=== PATIENT | female | born 1990 | race Caucasian/White ===

== ENCOUNTER 2017-07-11 10:58 | Outpatient (CLI) | payer OTHER | END 2017-07-11 10:59 | disposition short-term general hospital (02) | LOC: EMS 10:58 | PROVIDERS: ATTEND Surgery | DX: R11.2 Nausea with vomiting, unspecified (principal); R10.10 Upper abdominal pain, unspecified | CPT/HCPCS: A0170; A0425; A0427 ==

== ENCOUNTER 2018-10-27 13:25 | Emergency (ER) | payer OTHER ==
--- NOTE | 2018-10-27 13:49 | ED Physician Documentation ---
PD HPI HEAD INJURY - Stated complaint Stated Complaint: HEAD INJURY - Chief complaint Chief Complaint: Neuro - History obtained from History obtained from: Patient - History of Present Illness Mechanism of head injury: Blow (she says she was hiking up hill 3 days ago and misjudged clearance under a large tree branch, and struck the top of her head forcefully. [place]/heard a pop in the neck area. Later in the day noted some tingling on left side of tongue but no facial droop nor trouble speaking. Has had continued pain in the neck and back of the head. Hurts with ROM of the neck so is guarding movment. Has had pain/numbness radiate to left shoulder but not down arm per se. Has history of some moderate disc injuries with cervical stenosis from it in the past.) Timing - onset: How many days ago (3) Location of injury: Front, Top Quality of pain: Pain, Aching (mainly in back of head and neck area, sharp aching pain) Associated symptoms: Neck pain, Paresthesias (had some numbness left side of tongue after the injury for hours. Also numbness left shoulder area.). No: LOC, AMS, Nausea / vomiting Symptoms improve with: Rest Symptoms worsen with: Movement (pain with movement. Head/neck movment does not recreate the tongue numbness.) Similar symptoms before: Has not had sx before Recently seen: Not recently seen Review of Systems Constitutional: denies: Fever, Chills Eyes: denies: Loss of vision, Decreased vision Nose: denies: Rhinorrhea / runny nose, Congestion Throat: denies: Sore throat Respiratory: denies: Cough GI: denies: Nausea, Vomiting, Diarrhea Musculoskeletal: reports: Neck pain. denies: Back pain Neurologic: reports: Numbness, Headache, Head injury. denies: Focal weakness, Near syncope, Confused, Altered mental status PD PAST MEDICAL HISTORY - Past Medical History Cardiovascular: None Respiratory: None Neuro: None Endocrine/Autoimmune: None Musculoskeletal: Other (prior neck injuries with moderate disc injury and 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, follows with a neck surgeon.) - Present Medications Home Medications: Ambulatory Orders Medication Instructions Recorded Confirmed Dexamethasone [Decadron] 4 mg PO DAILY #5 tablet 10/27/18 Methocarbamol [Robaxin] 500 mg PO Q6H PRN #30 tablet 02/05/19 Tramadol HCl 50 mg PO Q6H PRN #15 tablet 10/27/18 - Allergies Allergies/Adverse Reactions: Allergies Allergy/AdvReac Type Severity Reaction Status Date / Time amitriptyline Allergy Unknown Verified 10/27/18 13:41 codeine Allergy Unknown Verified 10/27/18 13:41 duloxetine [From Cymbalta] Allergy Unknown Verified 10/27/18 13:41 NSAIDS (Non-Steroidal Allergy Unknown Verified 10/27/18 13:41 Anti-Inflamma PD ED PE NORMAL - Vitals Vital signs reviewed: Yes - General General: Alert and oriented X 3, No acute distress (some guarded ROM of the neck. ), Well developed/nourished - HEENT HEENT: Atraumatic, PERRL, EOMI, Ears normal, Pharynx benign - Neck Neck: Supple, no meningeal sign, No adenopathy, Other (tender in lower cervical area without deformity noted. 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 presume concussive effect or brief nerve impingement. ), considered differential (consider structural neck injury with impaction of head and neck pain. So will get CT neck. Also consider some concussive effect so CT head. However, had onset of neck pain and headache after the injury, with midbrain symptoms of left side tongue numbness briefly, so consider vascular as well, such as dissection.), d/w patient Departure - Departure Disposition: 01 Home, Self Care Clinical Impression: Mild concussion Qualifiers: Encounter type: initial encounter Loss of consciousness presence/duration: without LOC Qualified Code(s): S06.0X0A - Concussion without loss of consciousness, initial encounter Acute strain of neck muscle Qualifiers: Encounter type: initial encounter Qualified Code(s): S16.1XXA - Strain of muscle, fascia and tendon at neck level, initial encounter Condition: Stable Record reviewed to determine appropriate education?: Yes Follow-Up: Tre Awad MD [Primary Care Provider] - Prescriptions: Dexamethasone [Decadron] 4 mg PO DAILY #5 tablet Methocarbamol [Robaxin] 500 mg PO Q6H PRN #30 tablet PRN Reason: Spasms Tramadol HCl 50 mg PO Q6H PRN #15 tablet PRN Reason: Pain Comments: Your CT scans of the neck and head as well as the angiogram did not show any acute abnormality. These would not show inflammation of the muscles or some of the nerve roots so he can still be having strain and nerve irritation. I would presume a mild concussive effect as well given the numbness in the face at times and such. Alternatively it could represent some atypical symptoms with a migraine. There is no signs of focused bleeding, fracture or vascular abnormalities. I would suggest some anti-inflammatories such as Decadron daily for the next 5 days and muscle relaxants. You can add Tylenol or even tramadol if needed for pains. Recheck if not better over the next several days or so. Discharge Date/Time: 10/27/18 18:02
[2018-10-27] MEDS ORDERED: DEXAMETHASONE 10 MG/ML VIAL IVP STA (14:29)
[2018-10-27] MEDS ORDERED: SODIUM CHLORIDE 0.9% 1,000 ML IV ONE (14:29)
[2018-10-27] MEDS ORDERED: HYDROmorphone 1 MG/ML CARPUJECT IVP STA (14:32)
[2018-10-27] MEDS ORDERED: IOVERSOL 320 100 ML VIAL IVP ONE ×2 (14:41→16:09)
--- NOTE | 2018-10-27 16:23 | CT Report ---
Reason: struck head, with JIMÉNEZ/neck pain, numbness tongue Procedure Date: 10/27/2018 Accession Number: [id number] / [id number] Procedure: CT - Head W/O CPT Code: FULL RESULT: EXAM: CT HEAD WITHOUT CONTRAST. EXAM DATE: 10/27/2018 04:06 PM. CLINICAL HISTORY: Struck head, with headache/neck pain, numbness tongue. COMPARISON: None. TECHNIQUE: Multiaxial CT images were obtained from the foramen magnum to the vertex. Reformats: Sagittal and coronal. IV contrast: None. In accordance with CT protocol optimization, one or more of the following dose reduction techniques were utilized for this exam: automated exposure control, adjustment of mA and/or KV based on patient size, or use of iterative reconstructive technique. FINDINGS: Parenchyma: No intraparenchymal hemorrhage. No evidence of mass, midline shift, or CT findings of infarction. Bell-white differentiation is distinct. Extraaxial Spaces: Normal for age. No subdural or epidural collections identified. Ventricles: Normal in size and position. Sinuses and Orbits: Imaged paranasal sinuses, orbits, and mastoids show no significant abnormality. Bones: No evidence of fracture or calvarial defect. Other: None. IMPRESSION: Normal head CT. RADIA
--- NOTE | 2018-10-27 16:45 | CT Report ---
Reason: struck head, has neck pain, numb left arm Procedure Date: 10/27/2018 Accession Number: [id number] / [id number] Procedure: CT - Cervical Spine W/O CPT Code: FULL RESULT: EXAM: CT CERVICAL SPINE WITHOUT CONTRAST DATE: 10/27/2018 04:06 PM. HISTORY: Struck head, has neck pain, numb left arm. COMPARISONS: None. TECHNIQUE: Thin-section axial images were acquired of the cervical spine without contrast. Post-processing: Coronal and sagittal reformats. Other: None. In accordance with CT protocol optimization, one or more of the following dose reduction techniques were utilized for this exam: automated exposure control, adjustment of mA and/or KV based on patient size, or use of iterative reconstructive technique. FINDINGS: Alignment: No scoliosis or spondylolisthesis. Bones: No fracture or bone lesion. Interspace Levels/Facets: C1-C2: Unremarkable. C2-C3: Unremarkable. C3-C4: Unremarkable. C4-C5: Unremarkable. C5-C6: Unremarkable. C6-C7: Unremarkable. C7-T1: Unremarkable. Musculature: Normal. No fatty atrophy. Other: The paravertebral and prevertebral soft tissues are unremarkable. The lung apices are clear. The visualized carotid and vertebral arteries appear morphologically normal. IMPRESSION: Normal cervical spine CT. RADIA
--- NOTE | 2018-10-27 16:46 | CT Report ---
Reason: struck head; head/neck pain Procedure Date: 10/27/2018 Accession Number: [id number] / [id number] Procedure: CT - Head Angio CPT Code: FULL RESULT: EXAM: CT ANGIOGRAM HEAD AND NECK. CT SCAN HEAD WITHOUT AND WITH CONTRAST. EXAM DATE:10/27/2018 04:06 PM. CLINICAL HISTORY:Struck head, head and neck pain. COMPARISON:Accompanying unenhanced CT head. TECHNIQUE: Routine axial helical CTA imaging was performed from the aortic arch through the [place]. Routine axial CT imaging of the head was performed prior to and following contrast administration. Reconstructions: Routine multiplanar 3D MIP reconstructions. IV contrast: 80 cc Optiray 320. NASCET Criteria are used for stenosis measurements. In accordance with CT protocol optimization, one or more of the following dose reduction techniques were utilized for this exam: automated exposure control, adjustment of mA and/or KV based on patient size, or use of iterative reconstructive technique. Findings: Relevant images are indicated (image number, series number). Postcontrast CT head: No abnormal enhancement of the brain, meninges. CT angiogram head: Left ICA: Widely patent including MCA, APOLINAR distribution. Right ICA: Widely patent including MCA, APOLINAR distribution. Posterior circulation: Patent distal bilateral vertebral arteries, basilar artery, patent lateral HEADER UP distribution. There are small left/right PCOM present. Patent major draining veins. CT angiogram neck: Aortic arch: Widely patent, normal configuration of the great vessels. Left carotid artery: Widely patent. Right carotid artery: Widely patent. Left vertebral artery: Widely patent. Right vertebral artery: Widely patent. Limited evaluation of the lung apices are unremarkable. Soft tissue structures of the neck are unremarkable, and repeat. No significant degenerative change of the cervical spine, no suspicious bony lesions. Impressions: Postcontrast CT head: 1. Negative. CT angiogram head: 1. Patent major arteries of the brain, with normal anatomical variability as described. No aneurysm, dissection, stenosis, AVM. 2. Patent major veins. CT angiogram neck: 1. Widely patent aortic arch, bilateral carotid and vertebral arteries. 2. No aneurysm, dissection, stenosis, or AVM. 3. Soft tissue neck negative. 4. Cervical spine unremarkable. RADIA
--- NOTE | 2018-10-27 16:46 | CT Report ---
Reason: struck head, pain in neck and numbness left tongue Procedure Date: 10/27/2018 Accession Number: [id number] / [id number] Procedure: CT - Neck Angio CPT Code: FULL RESULT: EXAM: CT ANGIOGRAM HEAD AND NECK. CT SCAN HEAD WITHOUT AND WITH CONTRAST. EXAM DATE:10/27/2018 04:06 PM. CLINICAL HISTORY:Struck head, head and neck pain. COMPARISON:Accompanying unenhanced CT head. TECHNIQUE: Routine axial helical CTA imaging was performed from the aortic arch through the [place]. Routine axial CT imaging of the head was performed prior to and following contrast administration. Reconstructions: Routine multiplanar 3D MIP reconstructions. IV contrast: 80 cc Optiray 320. NASCET Criteria are used for stenosis measurements. In accordance with CT protocol optimization, one or more of the following dose reduction techniques were utilized for this exam: automated exposure control, adjustment of mA and/or KV based on patient size, or use of iterative reconstructive technique. Findings: Relevant images are indicated (image number, series number). Postcontrast CT head: No abnormal enhancement of the brain, meninges. CT angiogram head: Left ICA: Widely patent including MCA, APOLINAR distribution. Right ICA: Widely patent including MCA, APOLINAR distribution. Posterior circulation: Patent distal bilateral vertebral arteries, basilar artery, patent lateral SHOWROOM EXECUTIVE DIRECTOR distribution. There are small left/right PCOM present. Patent major draining veins. CT angiogram neck: Aortic arch: Widely patent, normal configuration of the great vessels. Left carotid artery: Widely patent. Right carotid artery: Widely patent. Left vertebral artery: Widely patent. Right vertebral artery: Widely patent. Limited evaluation of the lung apices are unremarkable. Soft tissue structures of the neck are unremarkable, and repeat. No significant degenerative change of the cervical spine, no suspicious bony lesions. Impressions: Postcontrast CT head: 1. Negative. CT angiogram head: 1. Patent major arteries of the brain, with normal anatomical variability as described. No aneurysm, dissection, stenosis, AVM. 2. Patent major veins. CT angiogram neck: 1. Widely patent aortic arch, bilateral carotid and vertebral arteries. 2. No aneurysm, dissection, stenosis, or AVM. 3. Soft tissue neck negative. 4. Cervical spine unremarkable. RADIA
[2018-10-27] MEDS ORDERED: diazePAM 5 MG TABLET PO STA (17:27)
[2018-10-27 18:40] VITALS: BP 128/68
== END 2018-10-27 18:02 | disposition home or self-care (01) ==
LOC: ED 13:25
DX: S06.0X0A Concussion without loss of consciousness, initial encounter (principal); S16.1XXA Strain of muscle, fascia and tendon at neck level, initial encounter; W21.9XXA Striking against or struck by unspecified sports equipment, initial encounter; Y93.01 Activity, walking, marching and hiking; Y92.828 Other wilderness area as the place of occurrence of the external cause
CPT/HCPCS: 70450; 70496; 70498; 72125; 96361; 96374; 96375; 99283; A9270; J1170; Q9967

== ENCOUNTER 2018-12-08 11:01 | Emergency (ER) | payer OTHER ==
--- NOTE | 2018-12-08 11:51 | ED Physician Documentation ---
History of Present Illness - Stated complaint Stated Complaint: FLU LIKE SX - Chief complaint Chief Complaint: General - History obtained from History obtained from: Patient - Additonal information Additional information: Patient is a 28-year-old female with history of Crohn's disease and asthma presenting with viral-like syndrome over the past 1 day. Patient reports fever, chills, generalized muscle aches and pains, decreased oral intake, sore throat and mild URI symptoms, particularly nasal congestion. Patient denies abdominal pain, vomiting, urine or stool changes, as well as difficulty breathing. Patient has taken DayQuil with mild improvement. No particular worsening factors noted.Patient requesting IV fluids. Review of Systems Constitutional: reports: Fever, Chills Ears: denies: Reviewed and negative PD PAST MEDICAL HISTORY - Past Medical History Cardiovascular: None Respiratory: None Neuro: None Endocrine/Autoimmune: None GI: Crohn's disease BUSINESS DATABASE ANALYST: Other : Chronic bladder infection Psych: Depression, Anxiety Musculoskeletal: Other (prior neck injuries with moderate disc injury and 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, follows with a neck surgeon.) Derm: Eczema - Past Surgical History Past Surgical History: Yes General: Cholecystectomy, Colonoscopy, EGD - Present Medications Home Medications: Ambulatory Orders Medication Instructions Recorded Confirmed Dexamethasone [Decadron] 4 mg PO DAILY #5 tablet 10/27/18 Methocarbamol [Robaxin] 500 mg PO Q6H PRN #30 tablet 10/27/18 Tramadol HCl 50 mg PO Q6H PRN #15 tablet 10/27/18 Oseltamivir [Tamiflu] 75 mg PO BID #10 capsule 12/08/18 - Allergies Allergies/Adverse Reactions: Allergies Allergy/AdvReac Type Severity Reaction Status Date / Time amitriptyline Allergy Unknown Verified 12/08/18 11:36 codeine Allergy Unknown Verified 12/08/18 11:36 duloxetine [From Cymbalta] Allergy Unknown Verified 12/08/18 11:36 NSAIDS (Non-Steroidal Allergy Unknown Verified 12/08/18 11:36 Anti-Inflamma - Social History Does the pt smoke?: No Smoking Status: Never smoker Does the pt drink ETOH?: Yes Does the pt have substance abuse?: No - Immunizations Immunizations are current?: Yes - POLST Patient has POLST: No PD ED PE NORMAL - General General: Alert and oriented X 3, No acute distress, Well developed/nourished - HEENT HEENT: Atraumatic, Ears normal, Moist mucous membranes, Pharynx benign - Cardiac Cardiac: RRR, No murmur - Respiratory Respiratory: No respiratory distress, Clear bilaterally - Abdomen Abdomen: Normal bowel sounds, Soft, Non tender, Non distended - Derm Derm: Normal color, Warm and dry, No rash - Extremities Extremities: No deformity - Neuro Neuro: Alert and oriented X 3, No motor deficit, No sensory deficit - Psych Psych: Normal mood, Normal affect Results - Vitals Vitals: Vital Signs - 24 hr 12/08/18 11:32 Temperature 37.1 C Heart Rate 100 Respiratory 16 Rate Blood Pressure 135/87 H O2 Saturation 97 Oxygen O2 Source Room air - Labs Labs: Laboratory Tests 12/08/18 11:30 Influenza A (Rapid) POSITIVE H Influenza B (Rapid) Negative PD MEDICAL DECISION MAKING - ED course Complexity details: reviewed results, re-evaluated patient, considered differential, d/w patient ED course: Most concerning for influenza and other viral illness, and symptomatology and physical exam findings. Also had suspicion for possible sinusitis, but feel is likely experiencing otitis media or externa, mastoiditis, peritonsillar abscess, pharyngitis, tonsillitis, or pneumonia. Also low suspicion for meningitis, intra-abdominal illness or other systemic illness except for as stated above. Influenza testing returned positive. Patient initially requested IV fluids, but later declined. Do not feel that she is dehydrated enough to require IV placement and can otherwise tolerate oral intake without issue. Discussed results and recommendations, use medications, supportive cares, return precautions and follow-up with patient. Patient voiced understanding and is comfortable with discharge plan. Departure - Departure Disposition: 01 Home, Self Care Clinical Impression: Influenza A Condition: Good Instructions: ED Flu Follow-Up: MAHNAZ MARTINEZ MD [Primary Care Provider] - Within 3 Days Prescriptions: Oseltamivir [Tamiflu] 75 mg PO BID #10 capsule Comments: Please take Tamiflu as prescribed to treat influenza. Recommend use of Tylenol as needed as well as other [id number] medications to help control symptoms. Recommend hydration, rest, and follow-up with primary care physician in next 2-3 days. Return to ED sooner if explains worsening symptoms or other concerns. Forms: Activity restrictions
[2018-12-08] MEDS ORDERED: SODIUM CHLORIDE 0.9% 1,000 ML IV ONE ×2 (12:05→12:06)
[2018-12-08 13:39] VITALS: BP 128/74
== END 2018-12-08 13:38 | disposition home or self-care (01) ==
LOC: ED 11:01
DX: J10.89 Influenza due to other identified influenza virus with other manifestations (principal)
CPT/HCPCS: 87275; 87276; 99283

== ENCOUNTER 2020-10-06 10:52 | Outpatient (CLI) | payer BC | END 2020-10-06 10:53 | disposition critical access hospital (66) | LOC: EMS 10:52 | PROVIDERS: ATTEND Surgery | DX: R10.9 Unspecified abdominal pain (principal) | CPT/HCPCS: A0425; A0427 ==

== ENCOUNTER 2020-10-06 11:30 | Emergency (ER) | payer BC, OTHER ==
[2020-10-06] MEDS ORDERED: ONDANSETRON 4 MG/2 ML VIAL IVP STA (12:28)
[2020-10-06] MEDS ORDERED: SODIUM CHLORIDE 0.9% 1,000 ML IV STA (12:28)
[2020-10-06] MEDS ORDERED: HYDROmorphone 1 MG/ML CARPUJECT IVP STA (12:28)
--- NOTE | 2020-10-06 12:33 | ED Physician Documentation ---
PD HPI ABD PAIN - Stated complaint Stated Complaint: AB PX - Chief complaint Chief Complaint: Abd Pain - History obtained from History obtained from: Patient - History of Present Illness Timing - onset: How many weeks ago (several weeks) Timing - duration: Weeks Timing - details: Gradual onset Pain level max: 10 Pain level now: 10 Quality: Cramping, Aching, Pain Location: All over / everywhere, LLQ (worst in the LLQ) Improved by: Laying still Worsened by: Moving, Palpation Associated symptoms: Nausea, Vomiting, Weight loss (states 30lbs in the last several months). No: Fever, Hematemesis, Diarrhea, Constipation, Melena, Hematochezia, Dysuria, Hematuria, Chest pain, Dizzy, Near syncope / syncope, Loss of appetite Similar symptoms before: Diagnosis (crohns disease, started on azathioprine 2 weeks ago) Recently seen: Clinic (Followed by GI at [facility] in [place], Dr. Mae, [place] [facility]. States had a CT 2 weeks ago, unsure of results.) Review of Systems Ten Systems: 10 systems reviewed and negative Constitutional: denies: Fever, Chills Ears: denies: Ear pain Nose: denies: Rhinorrhea / runny nose, Congestion Cardiac: denies: Chest pain / pressure Respiratory: denies: Cough GI: denies: Abdominal Pain, Nausea, Vomiting, Diarrhea : denies: Dysuria Skin: denies: Rash Musculoskeletal: denies: Neck pain, Back pain Neurologic: denies: Headache PD PAST MEDICAL HISTORY - Past Medical History Cardiovascular: None Respiratory: None Neuro: None Endocrine/Autoimmune: None GI: Crohn's disease FINANCIAL AUDITOR: Other : Chronic bladder infection Psych: Depression, Anxiety Musculoskeletal: Other (prior neck injuries with moderate disc injury and 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, follows with a neck surgeon.) Derm: Eczema - Past Surgical History Past Surgical History: Yes General: Cholecystectomy, Colonoscopy, EGD - Present Medications Home Medications: Ambulatory Orders Medication Instructions Recorded Confirmed Tramadol HCl 50 mg PO Q6H PRN #15 tablet 10/27/18 dexAMETHasone [Decadron] 4 mg PO DAILY #5 tablet 10/27/18 methocarbamoL [Robaxin] 500 mg PO Q6H PRN #30 tablet 10/27/18 Oseltamivir [Tamiflu] 75 mg PO BID #10 capsule 12/08/18 Hyoscyamine Sulfate [Levsin-Sl] 0.125 mg SL Q6H PRN #20 tab.subl 10/06/20 - Allergies Allergies/Adverse Reactions: Allergies Allergy/AdvReac Type Severity Reaction Status Date / Time amitriptyline Allergy Unknown Verified 12/08/18 11:36 codeine Allergy Unknown Verified 12/08/18 11:36 duloxetine [From Cymbalta] Allergy Unknown Verified 12/08/18 11:36 NSAIDS (Non-Steroidal Allergy Unknown Verified 12/08/18 11:36 Anti-Inflamma - Social History Does the pt smoke?: No Smoking Status: Never smoker Does the pt drink ETOH?: Yes Does the pt have substance abuse?: No - Immunizations Immunizations are current?: Yes - POLST Patient has POLST: No PD ED PE NORMAL - Vitals Vital signs reviewed: Yes - General General: Alert and oriented X 3, No acute distress - HEENT HEENT: Moist mucous membranes - Neck Neck: Supple, no meningeal sign - Cardiac Cardiac: RRR, Strong equal pulses - Respiratory Respiratory: No respiratory distress, Clear bilaterally - Abdomen Abdomen: Soft, Non distended, Other (TTP LLQ, no peritoneal signs.) - Derm Derm: Warm and dry - Neuro Neuro: Alert and oriented X 3 - Psych Psych: Normal mood, Normal affect Results - Vitals Vitals: Vital Signs - 24 hr 10/06/20 10/06/20 10/06/20 11:49 13:56 16:23 Temperature 36.6 C 36.2 C L Heart Rate 57 L 55 L 62 Respiratory 18 18 18 Rate Blood Pressure 112/65 136/61 H 133/74 H O2 Saturation 98 99 98 Oxygen O2 Source Room air - Labs Labs: Laboratory Tests 10/06/20 10/06/20 10/06/20 12:40 12:40 12:40 WBC 8.2 RBC 4.60 Hgb 14.5 Hct 43.3 MCV 94.1 MCH 31.5 H MCHC 33.5 RDW 12.2 Plt Count 243 MPV 9.4 Neut # (Auto) 7.2 H Lymph # (Auto) 0.5 L Caroline # (Auto) 0.4 Eos # (Auto) 0.0 Baso # (Auto) 0.0 Absolute Nucleated RBC 0.00 Nucleated RBC % 0.0 ESR 6 Sodium 138 Potassium 4.2 Chloride 102 Carbon Dioxide 25 Anion Gap 11.0 BUN 10 Creatinine 0.7 Estimated GFR (MDRD) 100 Glucose 100 Calcium 9.5 Total Bilirubin 2.1 H AST 18 ALT 16 Alkaline Phosphatase 32 L C-Reactive Protein < 1.0 Total Protein 7.9 Albumin 4.6 Globulin 3.3 Albumin/Globulin Ratio 1.4 Lipase 32 Serum HCG, Qual Urine Color Urine Clarity Urine pH Ur Specific [place] Urine Protein Urine Glucose (UA) Urine Ketones Urine Occult Blood Urine Nitrite Urine Bilirubin Urine Urobilinogen Ur Leukocyte Esterase Urine RBC Urine WBC Ur Squamous Epith Cells Urine Bacteria Ur Microscopic Review Urine Culture Comments Urine HCG, Qual 10/06/20 10/06/20 12:40 14:47 WBC RBC Hgb Hct MCV MCH MCHC RDW Plt Count MPV Neut # (Auto) Lymph # (Auto) Caroline # (Auto) Eos # (Auto) Baso # (Auto) Absolute Nucleated RBC Nucleated RBC % ESR Sodium Potassium Chloride Carbon Dioxide Anion Gap BUN Creatinine Estimated GFR (MDRD) Glucose Calcium Total Bilirubin AST ALT Alkaline Phosphatase C-Reactive Protein Total Protein Albumin Globulin Albumin/Globulin Ratio Lipase Serum HCG, Qual NEGATIVE Urine Color YELLOW Urine Clarity CLEAR Urine pH 6.0 Ur Specific [place] 1.020 Urine Protein NEGATIVE Urine Glucose (UA) NEGATIVE Urine Ketones >=80 H Urine Occult Blood SMALL H Urine Nitrite NEGATIVE Urine Bilirubin NEGATIVE Urine Urobilinogen 0.2 (NORMAL) Ur Leukocyte Esterase NEGATIVE Urine RBC 0-5 Urine WBC 0-3 Ur Squamous Epith Cells MOD Squamous H Urine Bacteria None Seen Ur Microscopic Review INDICATED Urine Culture Comments NOT INDICATED Urine HCG, Qual NEGATIVE - Rads (name of study) CT abdomen pelvis Radiology: Prelim report reviewed, EMP read contemporaneously, See rad report (1. Mild segmental wall thickening of the distal colon compatible with a mild nonspecific colitis, likely infectious or inflammatory. ) PD MEDICAL DECISION MAKING - ED course Complexity details: reviewed results, re-evaluated patient, considered differential, d/w patient ED course: 29-year-old female presents to the emergency department with what appears to be ongoing colitis. Pain resolved with Levsin. She also appears to have an involuting left ovarian cyst on CT scan. This could have contributed to her pain as well. Patient states that she does have a history of ovarian cyst in the past. Patient is well-appearing, nontoxic. Afebrile. Inflammatory markers are negative. Patient is well-appearing, nontoxic. Discussed the case with her GI doctor, Dr. Mae who recommends continuing current medications and follow-up in the office. Patient counseled regarding signs and symptoms for which I believe and urgent re-evaluation would be necessary. Patient with good understanding of and agreement to plan and is comfortable going home at this time This document was made in part using voice recognition software. While efforts are made to proofread this document, sound alike and grammatical errors may occur. Departure - Departure Disposition: Home, Self Care Clinical Impression: Left ovarian cyst Crohn's colitis Qualifiers: Digestive disease complication type: unspecified complication Qualified Code(s): K50.119 - Crohn's disease of large intestine with unspecified complications Condition: Good Instructions: Crohn Disease, Disease Crohn Lifestyle Manage, ED Cyst Ovarian Follow-Up: MAHNAZ VÁSQUEZ MD [Primary Care Provider] - Within 1 week Prescriptions: Hyoscyamine Sulfate [Levsin-Sl] 0.125 mg SL Q6H PRN #20 tab.subl PRN Reason: Abdominal Pain Comments: Follow-up with your doctor for further care. There is a mild colitis on your CT scan. There also appears to be an involuting left ovarian cyst. This is resolving. Continue your medications. Return if you worsen. 1. Mild segmental wall thickening of the distal colon compatible with a mild nonspecific colitis, likely infectious or inflammatory. Discharge Date/Time: 10/06/20 16:24
[2020-10-06 12:46] LABS: BASOPHILS % (AUTO) 0.2 %; EOSINOPHILS % (AUTO) 0.4 %; HGB - HEMOGLOBIN 14.5 g/dL (12.0-16.0); LYMPHOCYTES # (AUTO) 0.5 10^3/uL (1.5-3.5); LYMPHOCYTES % (AUTO) 6.2 %; MEAN CORPUSCULAR HEMOGLOBIN 31.5 pg (27.0-31.0); MEAN CORPUSCULAR HGB CONC 33.5 g/dL (32.0-36.0); MEAN CORPUSCULAR VOLUME 94.1 fL (81.0-99.0); MEAN PLATELET VOLUME 9.4 fL (7.9-10.8); MONOCYTES # (AUTO) 0.4 10^3/uL (0.0-1.0); NEUTROPHILS # (AUTO) 7.2 10^3/uL (1.5-6.6); PLT - PLATELET COUNT 243 10^3/uL (130-450); RED CELL DISTRIBUTION WIDTH 12.2 % (12.0-15.0); WHITE BLOOD COUNT 8.2 x10^3/uL (4.8-10.8)
[2020-10-06 13:05] LABS: ALBUMIN 4.6 g/dL (3.2-5.5); ALBUMIN/GLOBULIN RATIO 1.4 (1.0-2.2); ALKALINE PHOSPHATASE 32 IU/L (42-121); ALT ALANINE AMINOTRANSFERASE 16 IU/L (10-60); AST ASPARTATE AMINOTRANSFERASE 18 IU/L (10-42); BILIRUBIN,TOTAL 2.1 mg/dL (0.2-1.0); BUN - BLOOD UREA NITROGEN 10 mg/dL (6-20); CALCIUM 9.5 mg/dL (8.5-10.3); CARBON DIOXIDE - CO2 25 mmol/L (21-32); CHLORIDE 102 mmol/L (101-111); CREATININE 0.7 mg/dL (0.4-1.0); GLUCOSE 100 mg/dL (70-100); LIPASE 32 U/L (22-51); SODIUM 138 mmol/L (135-145); TOTAL PROTEIN 7.9 g/dL (6.7-8.2)
[2020-10-06 13:06] LABS: CRP - C-REACTIVE PROTEIN < 1.0 mg/dL (0-1.0)
[2020-10-06 14:59] LABS: BILIRUBIN,URINE NEGATIVE (NEGATIVE); GLUCOSE, URINE (UA) NEGATIVE (NEGATIVE); KETONES,URINE (UA) >=80 mg/dL (NEGATIVE); LEUKOCYTE ESTERASE, URINE NEGATIVE (NEGATIVE); NITRITE,URINE NEGATIVE (NEGATIVE); OCCULT BLOOD,URINE SMALL (NEGATIVE); PROTEIN,URINE NEGATIVE (NEGATIVE); UROBILINOGEN,URINE 0.2 (NORMAL) E.U./dL (NORMAL)
[2020-10-06] MEDS ORDERED: HYOSCYAMINE SL 0.125 MG TABLET SL STA (14:59)
[2020-10-06 15:04] LABS: CLARITY,URINE CLEAR (CLEAR); HCG UR QUAL NEGATIVE
[2020-10-06 15:26] LABS: RBC,URINE 0-5 /HPF (0-5); SQUAMOUS EPITHELIAL CELL,UR MOD Squamous (<= Few)
[2020-10-06 15:27] LABS: BACTERIA,URINE None Seen /HPF (None Seen)
[2020-10-06 15:38] LABS: HCG,QUALITATIVE BLOOD NEGATIVE
--- NOTE | 2020-10-06 15:52 | CT Report ---
PROCEDURE: Abdomen/Pelvis W INDICATIONS: LLQ abd pain CONTRAST: IV CONTRAST: Optiray 320 ml: 100 PO CONTRAST: *NO PO CONTRAST TECHNIQUE: After the administration of intravenous contrast, 5 mm thick sections acquired from the diaphragms to the symphysis. 5 mm thick coronal and sagittal reformats were acquired. For radiation dose reducti on, the following was used: automated exposure control, adjustment of mA and/or kV according to lan ent size. COMPARISON: None. FINDINGS: Image quality: Excellent. ABDOMEN: Lung bases: Lung bases are clear. Heart size is normal. Solid organs: There is a small hypodensity in the right hepatic lobe measuring up to 4 mm which is to o small to characterize but likely represents a cyst. Gallbladder is surgically absent. Biliary syste m is slightly dilated measuring up to 8 mm which may reflect sequelae of prior cholecystectomy. No ca lcified common duct stones. The spleen is normal in size. Pancreas enhances normally without peripanc reatic fat stranding or fluid collections. No adrenal nodules. Kidneys demonstrate no hydronephrosi s. Peritoneum and bowel: Small bowel loops demonstrate normal wall thickness and caliber. No evidence of appendicitis. There is mild segmental wall thickening of the transverse, descending, and sigmoid col on with minimal pericolonic fat stranding compatible with a mild colitis. There is a small amount of free fluid in the pelvis which appears within physiologic limits. Nodes and vessels: No retroperitoneal or mesenteric adenopathy by size criteria. Aorta and inferior vena cava are normal in size. Miscellaneous: No ventral hernias. PELVIS: Genitourinary: The urinary bladder is partially distended. An IUD appears in appropriate position wit hin the uterus. Miscellaneous: No inguinal hernias or adenopathy. Bones: No suspicious bony lesions. No vertebral body compression fractures. IMPRESSION: 1. Mild segmental wall thickening of the distal colon compatible with a mild nonspecific colitis, lik christian infectious or inflammatory. Reviewed by: Jamil Hough MD on 10/06/2020 3:51 PM [facility] Approved by: Jamil Hough MD on 10/06/2020 3:51 PM PST Station ID: [id number]
[2020-10-06 16:24] VITALS: BP 133/74
[2020-10-06] MEDS ORDERED: IOVERSOL 320 100 ML VIAL IVP ONE (18:41)
== END 2020-10-06 16:24 | disposition home or self-care (01) ==
LOC: EDUNIT# → ED 11:30
DX: N83.202 Unspecified ovarian cyst, left side (principal); K50.119 Crohn's disease of large intestine with unspecified complications
CPT/HCPCS: 36415; 74177; 80053; 81001; 81025; 83690; 84703; 85025; 85651; 86140; 96374; 96375; 99284; 99285; A9270; J1170; 81003; 87086

== ENCOUNTER 2020-10-11 17:00 | Outpatient (CLI) | payer BC | END 2020-10-11 17:01 | disposition home or self-care (01) | LOC: LAB.S 17:00 | PROVIDERS: ATTEND Internal Medicine Gastroenterology | DX: K50.00 Crohn's disease of small intestine without complications (principal) | CPT/HCPCS: 36415; 80053; 85025 ==

== ENCOUNTER 2020-10-12 09:42 | Outpatient (CLI) | payer BC ==
[2020-10-12 15:05] LABS: BASOPHILS % (AUTO) 0.7 %; EOSINOPHILS # (AUTO) 0.2 10^3/uL (0.0-0.7); HGB - HEMOGLOBIN 13.6 g/dL (12.0-16.0); LYMPHOCYTES # (AUTO) 1.4 10^3/uL (1.5-3.5); LYMPHOCYTES % (AUTO) 25.2 %; MEAN CORPUSCULAR HEMOGLOBIN 31.3 pg (27.0-31.0); MEAN CORPUSCULAR HGB CONC 32.6 g/dL (32.0-36.0); MEAN CORPUSCULAR VOLUME 95.9 fL (81.0-99.0); MEAN PLATELET VOLUME 10.2 fL (7.9-10.8); MONOCYTES # (AUTO) 0.4 10^3/uL (0.0-1.0); MONOCYTES % (AUTO) 6.2 %; NEUTROPHILS # (AUTO) 3.6 10^3/uL (1.5-6.6); NEUTROPHILS % (AUTO) 63.7 %; PLT - PLATELET COUNT 245 10^3/uL (130-450); RED BLOOD COUNT 4.35 10^6/uL (4.20-5.40); RED CELL DISTRIBUTION WIDTH 13.2 % (12.0-15.0); WHITE BLOOD COUNT 5.7 x10^3/uL (4.8-10.8)
[2020-10-12 15:38] LABS: ALBUMIN 4.4 g/dL (3.2-5.5); ALBUMIN/GLOBULIN RATIO 1.5 (1.0-2.2); BILIRUBIN,TOTAL 1.2 mg/dL (0.2-1.0); CALCIUM 9.2 mg/dL (8.5-10.3); CREATININE 0.7 mg/dL (0.4-1.0); TOTAL PROTEIN 7.3 g/dL (6.7-8.2)
== END 2020-10-12 09:43 | disposition home or self-care (01) ==
LOC: LAB.S 09:42
PROVIDERS: ATTEND Internal Medicine Gastroenterology
DX: K50.00 Crohn's disease of small intestine without complications (principal)
CPT/HCPCS: 36415; 80053; 85025

== ENCOUNTER 2021-11-29 08:00 | Outpatient (CLI) | payer BC ==
[2021-11-29 19:55] LABS: BASOPHILS # (AUTO) 0.1 10^3/uL (0.0-0.1); BASOPHILS % (AUTO) 0.8 %; EOSINOPHILS # (AUTO) 0.1 10^3/uL (0.0-0.7); EOSINOPHILS % (AUTO) 0.7 %; HCT - HEMATOCRIT 43.8 % (37.0-47.0); HGB - HEMOGLOBIN 14.6 g/dL (12.0-16.0); LYMPHOCYTES # (AUTO) 1.7 10^3/uL (1.5-3.5); LYMPHOCYTES % (AUTO) 22.5 %; MEAN CORPUSCULAR HEMOGLOBIN 31.3 pg (27.0-31.0); MEAN CORPUSCULAR HGB CONC 33.3 g/dL (32.0-36.0); MEAN CORPUSCULAR VOLUME 93.8 fL (81.0-99.0); MEAN PLATELET VOLUME 10.3 fL (7.9-10.8); MONOCYTES # (AUTO) 0.5 10^3/uL (0.0-1.0); MONOCYTES % (AUTO) 6.4 %; NEUTROPHILS # (AUTO) 5.2 10^3/uL (1.5-6.6); NEUTROPHILS % (AUTO) 69.3 %; PLT - PLATELET COUNT 234 10^3/uL (130-450); RED BLOOD COUNT 4.67 10^6/uL (4.20-5.40); RED CELL DISTRIBUTION WIDTH 13.1 % (12.0-15.0); WHITE BLOOD COUNT 7.5 x10^3/uL (4.8-10.8)
[2021-11-29 20:04] LABS: ALBUMIN 4.7 g/dL (3.2-5.5); ALBUMIN/GLOBULIN RATIO 1.4 (1.0-2.2); BILIRUBIN,TOTAL 2.1 mg/dL (0.2-1.0); CALCIUM 9.5 mg/dL (8.5-10.3); CREATININE 0.7 mg/dL (0.4-1.0); MAGNESIUM 1.8 mg/dL (1.7-2.8); POTASSIUM 3.4 mmol/L (3.5-5.0)
--- NOTE | 2021-11-30 08:25 | XRAY Report ---
PROCEDURE: Lumbar Spine 2 View INDICATIONS: LUMBAR BACK PAIN TECHNIQUE: 2 views of the lumbar spine were acquired. COMPARISON: None. FINDINGS: There are 5 nonrib-bearing lumbar-type vertebral bodies of normal height and alignment. No evidence o f pars defect. Facet hypertrophy from L3-L4 through L5-S1. Disc height loss from L3-L4 through L5-S1. Sacroiliac joint space is maintained. IUD and cholecystectomy clips noted. IMPRESSION: Lower lumbar spine degenerative changes, overall mild and most notable at L4-L5. Reviewed by: eRi Laura MD on 11/30/2021 8:24 AM PST Approved by: Rei Laura MD on 11/30/2021 8:24 AM PST Station ID: [id number]
--- NOTE | 2021-11-30 08:26 | XRAY Report ---
PROCEDURE: Thoracic Spine 2 View INDICATIONS: UPPER BACK PAIN TECHNIQUE: 3 views of the thoracic spine were acquired. COMPARISON: None. FINDINGS: Normal thoracic vertebral body height and alignment. No suspicious lytic or blastic osseous lesion. N o significant degenerative changes in the thoracic spine. Cystectomy clips noted. IMPRESSION: Normal thoracic spine radiographs. Reviewed by: Rei Laura MD on 11/30/2021 8:25 AM [facility] Approved by: Rei Laura MD on 11/30/2021 8:25 AM [facility] Station ID: [id number]
== END 2021-11-29 23:59 | disposition home or self-care (01) ==
LOC: LAB.S 08:00
PROVIDERS: ATTEND Physician Assistant Medical
DX: M54.9 Dorsalgia, unspecified (principal); M62.838 Other muscle spasm; M54.50 Low back pain, unspecified; M47.816 Spondylosis without myelopathy or radiculopathy, lumbar region; M47.817 Spondylosis without myelopathy or radiculopathy, lumbosacral region; M51.36 Other intervertebral disc degeneration, lumbar region; M51.37 Other intervertebral disc degeneration, lumbosacral region
CPT/HCPCS: 36415; 80053; 83735; 85025

== ENCOUNTER 2023-08-16 14:02 | Emergency (ER) | payer BC ==
[2023-08-16 14:26] VITALS: BP 138/96; O2SAT 97
[2023-08-16] MEDS ORDERED: diphenhydrAMINE INJ 50 MG/ML VIAL IM STA (14:34)
[2023-08-16] MEDS ORDERED: DROPERIDOL 5 MG/2 ML VIAL IM STA (14:34)
--- NOTE | 2023-08-16 14:38 | ED Physician Documentation ---
PD HPI HEAD INJURY - Stated complaint Stated Complaint: NECK PX,MIGRAINE/NAUSEA, - Chief complaint Chief Complaint: Trauma Hd/Nk - History obtained from History obtained from: Patient - History of Present Illness Timing - onset: How many days ago (5) Pain level max: 8 Pain level now: 8 Associated symptoms: Nausea / vomiting (Nausea no vomiting), Neck pain. No: LOC, AMS, Amnesia, Paresthesias, Seizures, Ear drainage, Nasal drainage Symptoms improve with: Rest Symptoms worsen with: Movement, Light, Noise Contributing factors: No: Anticoagulated, Intoxicated - Additional information Additional information: Patient is a 32-year-old female who states that she stood up and hit her head hard on a range wolff on Friday. It is now Friday. She states she went into the walk-in clinic on Friday and was diagnosed with a concussion. Since that time she has had worsening headaches. Has had nausea but no vomiting. No seizure activity. Has had pain in the neck as well. She states she felt a "pop" in her neck when she hit her head as well. No numbness or tingling. No loss of bowel or bladder control. No difficulty breathing. Worse with light, sound, movement. Denies any possibility of . States she is currently on her menses. Review of Systems Constitutional: denies: Fever, Chills Respiratory: denies: Cough GI: reports: Nausea. denies: Vomiting, Diarrhea : denies: Dysuria, Frequency, Hesitancy, Now EGA Skin: denies: Rash Musculoskeletal: denies: Back pain Neurologic: denies: Focal weakness, Numbness, Confused PD PAST MEDICAL HISTORY - Past Medical History Past Medical History: Yes Cardiovascular: None Respiratory: None Neuro: None Endocrine/Autoimmune: None GI: Crohn's disease REGISTERED PUBLIC HEALTH NURSE: Other : Chronic bladder infection Psych: Depression, Anxiety Musculoskeletal: Other Derm: Eczema Other Past Medical History: JRA - Past Surgical History Past Surgical History: Yes General: Cholecystectomy, Colonoscopy, EGD - Present Medications Home Medications: Ambulatory Orders Medication Instructions Recorded Confirmed Tramadol HCl 50 mg PO Q6H PRN #15 tablet 10/27/18 dexAMETHasone [Decadron] 4 mg PO DAILY #5 tablet 10/27/18 methocarbamoL [Robaxin] 500 mg PO Q6H PRN #30 tablet 10/27/18 Oseltamivir [Tamiflu] 75 mg PO BID #10 capsule 12/08/18 Hyoscyamine Sulfate [Levsin-Sl] 0.125 mg SL Q6H PRN #20 tab.subl 10/06/20 Butalb/Acetaminophen/Caffeine 1 cap PO Q6H PRN #10 cap 08/16/23 [Fioricet 50-300-40 mg Capsule] Ondansetron Odt [Zofran] 4 mg TL Q6H PRN #10 tablet 08/16/23 - Allergies Allergies/Adverse Reactions: Allergies Allergy/AdvReac Type Severity Reaction Status Date / Time amitriptyline Allergy Unknown Verified 08/16/23 14:20 Bleach (Sodium Hypochlorite) Allergy Anaphylaxis Verified 08/16/23 14:20 codeine Allergy Unknown Verified 08/16/23 14:20 duloxetine [From Cymbalta] Allergy Unknown Verified 08/16/23 14:20 NSAIDS (Non-Steroidal Allergy Unknown Verified 08/16/23 14:20 Anti-Inflamma - Social History Does the pt smoke?: No Smoking Status: Never smoker Does the pt drink ETOH?: No Does the pt have substance abuse?: Yes Substance Use and Type: Marijuana - Immunizations Immunizations are current?: Yes - POLST Patient has POLST: No PD ED PE NORMAL - Vitals Vital signs reviewed: Yes - General General: Alert and oriented X 3, No acute distress, Well developed/nourished - HEENT HEENT: Atraumatic, PERRL, EOMI, Moist mucous membranes - Neck Neck: Supple, no meningeal sign, No bony TTP - Cardiac Cardiac: RRR, Strong equal pulses - Respiratory Respiratory: No respiratory distress, Clear bilaterally - Abdomen Abdomen: Soft, Non tender, Non distended - Back Back: No spinal TTP - Derm Derm: Warm and dry - Extremities Extremities: No edema, No calf tenderness / cord - Neuro Neuro: Alert and oriented X 3, 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, No motor deficit, No sensory deficit, Normal speech Eye Opening: Spontaneous Motor: Obeys Commands Verbal: Oriented GCS Score: 15 - Psych Psych: Normal mood, Normal affect Results - Vitals Vitals: Vital Signs - 24 hr 08/16/23 14:13 Temperature 36.6 C Heart Rate 94 Respiratory 16 Rate Blood Pressure 138/96 H O2 Saturation 97 Oxygen O2 Source Room air - Rads (name of study) Head CT Relevant Findings:: Final report received, See rad report Cervical spine CT Relevant Findings:: Final report received, See rad report PD Medical Decision Making - ED course Complexity details: reviewed results, re-evaluated patient, considered differential, d/w patient ED course: No acute findings on head CT or cervical spine CT. Headache is consistent with postconcussive syndrome. Headache resolved with droperidol and Benadryl. Will prescribe pain medication and nausea medication for home. No neurological deficits. No evidence of fracture, skull fracture or intracranial hemorrhage. Patient counseled regarding signs and symptoms for which I believe and urgent re-evaluation would be necessary. Patient with good understanding of and agreement to plan and is comfortable going home at this time This document was made in part using voice recognition software. While efforts are made to proofread this document, sound alike and grammatical errors may occur. Departure - Departure Disposition: Home, Self Care Clinical Impression: Concussion Qualifiers: Encounter type: initial encounter Loss of consciousness presence/duration: without LOC Qualified Code(s): S06.0X0A - Concussion without loss of consciousness, initial encounter Condition: Good Instructions: ED Head Injury Closed Follow-Up: MAHNAZ MARTINEZ MD [Primary Care Provider] - Within 1 week Prescriptions: Butalb/Acetaminophen/Caffeine [Fioricet 50-300-40 mg Capsule] 1 cap PO Q6H PRN #10 cap PRN Reason: headache Ondansetron Odt [Zofran] 4 mg TL Q6H PRN #10 tablet PRN Reason: Nausea / Vomiting Comments: Your prescriptions were sent to [facility] in [place]. Your head CT and cervical spine CT do not show any acute abnormalities today. Please limit use of electronic screens as these may worsen your headache. Also limit any activity that causes headaches or nausea. Please return if you worsen. Forms: PCP List
--- NOTE | 2023-08-16 16:12 | CT Report ---
PROCEDURE: HEAD WO INDICATIONS: fall, head injury TECHNIQUE: Noncontrast 4.5 mm thick angled axial sections acquired from the foramen magnum to the vertex. For r adiation dose reduction, the following was used: automated exposure control, adjustment of mA and/or kV according to patient size. COMPARISON: 10/27/2018. Correlation is made with the accompanying cervical spine CT. FINDINGS: Image quality: This study is mildly limited by streak artifact from a left-sided ear ringing. CSF spaces: Basal cisterns are patent. No extra-axial fluid collections. Ventricles are normal in size and shape. Brain: No midline shift. No intracranial masses or hemorrhage. Bell-white matter interface is norm al. Skull and face: Calvarium and visualized facial bones are intact, without suspicious lesions. Sinuses: Visualized sinuses and mastoids are clear. IMPRESSION: No intracranial hemorrhage is seen. No significant intracranial abnormality is seen. Reviewed by: Gregorio Krishnamurthy MD on 08/16/2023 3:11 PM [facility] [place] Approved by: Gregorio Krishnamurthy MD on 08/16/2023 3:11 PM [facility] [place] Station ID: [id number]
--- NOTE | 2023-08-16 16:13 | CT Report ---
PROCEDURE: CERVICAL SPINE WO INDICATIONS: neck pain s/p trauma TECHNIQUE: Noncontrast 3 mm thick sections acquired from the skull base to the T4 level. Sagittal and coronal r eformats were then constructed. For radiation dose reduction, the following was used: automated exp osure control, adjustment of mA and/or kV according to patient size. COMPARISON: Correlation is made with the accompanying head CT. FINDINGS: Image quality: Excellent. Bones: No fractures or dislocations. Visualized superior ribs are intact. Soft tissues: Prevertebral soft tissues are normal in thickness. No paravertebral hematomas. No ap ical pneumothoraces. IMPRESSION: Negative for cervical spine fracture. Reviewed by: Gregorio Krishnamurthy MD on 08/16/2023 3:12 PM [facility] Approved by: Gregorio Krishnamurthy MD on 08/16/2023 3:12 PM [facility] Station ID: [id number]
== END 2023-08-16 16:33 | disposition home or self-care (01) ==
LOC: ED 14:02
DX: S06.0X0A Concussion without loss of consciousness, initial encounter (principal); W22.09XA Striking against other stationary object, initial encounter
CPT/HCPCS: 70450; 72125; 96372; 99283; 99284; J1200